=== PATIENT | female | born 1985 | race Caucasian/White ===

== ENCOUNTER 2019-02-17 20:08 | Emergency (ER) | payer OTHER ==
[~2019-02-17] VITALS: Ht 162.6 cm; Wt 65.2 kg
[2019-02-17 20:17] VITALS: Ht 162.6 cm; Wt 65.2 kg
--- NOTE | 2019-02-17 21:16 | ERD ---
ER Documentation Chief Complaint Chief Complaint PETERS HPI The patient is a 33-year-old female, homeless, presenting to the ER because of the headache intermittently for the last 3 days. She is under a lot of stress, denies fever, chills, neck pain, c/o chest discomfort. She denies dyspnea, abdominal pain, vomiting, dysuria, diarrhea. She does not smoke nor drink Past medical history: None Past surgical history: 3 , tubal ligation ROS All systems reviewed and are negative except as per history of present illness. Medications Home Meds Active Scripts Ibuprofen* (Motrin*) 600 Mg Tab, 600 MG PO Q6H PRN for PAIN, #20 TAB Prov:LIZ FERGUSON MD 02/17/19 Allergies Allergies: Coded Allergies: No Known Allergy (Unverified , 02/17/19) Physical Exam Vitals Vital Signs Date Temp Pulse Resp B/P (MAP) Pulse Ox O2 O2 Flow FiO2 Time Delivery Rate 02/17/19 78 20 131/78 99 Room Air 22:35 (95) 02/17/19 98.5 83 20 124/59 99 20:17 (80) Physical Exam Const: No acute distress. Head: Atraumatic. Eyes: Normal Conjunctiva. ENT: Normal External Ears, Nose and Mouth. Neck: Full range of motion. No meningismus. Resp: Clear to auscultation bilaterally. Cardio: Regular rate and rhythm. Abd: Soft, non distended, normal bowel sounds, non tender. Skin: No petechiae or rashes. Back: No midline or flank tenderness. Ext: No cyanosis, or edema. Neur: Awake and alert. No focal deficit Psych: Normal Mood and Affect. Results 24 hrs Laboratory Tests Test 02/17/19 22:14 POC Beta HCG, Qualitative NEGATIVE Current Medications Medications Dose Sig/Julio Start Time Status Last (Trade) Ordered Route PRN Stop Time Admin Dose Reason Admin Ibuprofen 600 mg ONCE ONCE 02/17/19 DC 02/17/19 (Motrin) PO 22:30 22:35 02/17/19 22:31 Procedures/MDM EKG: Read by emergency physician Rate/Rhythm: Normal Sinus Rhythm 79 beats/min QRS, ST, T-waves: No ST elevation, no T inversion Impression: Normal EKG MEDICAL MAKING DECISION: The patient is a 33-year-old female, presenting with acute headache, most likely due to acute stress, treated with Motrin for headache with good response, is stable for outpatient follow-up The differential diagnoses considered include but are not limited to subarachnoid hemorrhage, occult trauma, CVA, meningitis, encephalitis, hypertension, tension, migraine, cluster, narcotic withdrawal, cervical spine disease. Departure Diagnosis: Primary Impression: Headache Additional Impression: Stress Condition: Good Comments She was discharged with Motrin I discussed the findings with the patient. I advised the patient to follow-up with the primary physician in about 1-2 days, sooner if needed and return if any concern. Disclaimer: Inadvertent spelling and grammatical errors are likely due to EHR/dictation software use and do not reflect on the overall quality of patient care. Also, please note that the electronic time recorded on this note does not necessarily reflect the actual time of the patient encounter. LIZ FERGUSON MD Feb 17, 2019 21:16
[2019-02-17] MEDS ORDERED: IBUP-1542 PO (22:05)
[2019-02-17] MEDS ORDERED: IBUPROFEN 600 MG TAB PO ONE (22:30)
[2019-02-17 22:35] VITALS: BP 131/78; PULSE 78; RESP 20
== END 2019-02-17 22:35 | disposition home or self-care (01) ==
LOC: E/R 20:08
DX: R20.0 Anesthesia of skin (principal); R40.2142 Coma scale, eyes open, spontaneous, at arrival to emergency department; R40.2362 Coma scale, best motor response, obeys commands, at arrival to emergency department; R40.2252 Coma scale, best verbal response, oriented, at arrival to emergency department; R51 Headache
CPT/HCPCS: 70450; 81025; 93005; Z7502; Z7610